=== PATIENT | female | born 1955 | race Caucasian/White ===

== ENCOUNTER 2016-08-01 12:37 | Observation (INO) | payer MEDICARE ==
[2016-08-01] VITALS (10 sets, daily range): BP systolic 133–157; BP diastolic 63–81; PULSE 58–70; RESP 16–18; TEMP 97.6–98.2; O2SAT 93–97
--- NOTE | 2016-08-01 12:43 | PD ---
HPI Chief Complaint: chest pain Time Seen by Provider: 12:41 Travel History International Travel<30 days: No Contact w/Intl Traveler<30days: No Traveled to known affect area: No History of Present Illness HPI 61-year-old female coming in with reports of chest pain since yesterday via EMS. Patient states she was walking yesterday and developed chest pain. Patient states intermittent and ongoing since that time. Patient reports that a year ago her "heart stopped", but she denies having a cardiac catheterization or stress test. Patient has a history of anxiety. Patient also appears somewhat intoxicated with alcohol and board per EMS. Patient was given 324 mg aspirin and 1 sublingual nitroglycerin prior to arrival. Patient currently states her pain is improved. Patient has no known drug allergies. COUNTS INCLUDE 234 BEDS AT THE [facility] Social History Alcohol Use: Yes Tobacco Use: No Substance Use: No Allergies-Medications (Allergen,Severity, Reaction): Coded Allergies: Buspar (Verified Adverse Reaction, Intermediate, INSOMNIA, 08/01/16) Trazodone (Verified Adverse Reaction, Intermediate, SLEEPLESSNESS, 08/01/16 ) Uncoded Allergies: STEROIDS (Adverse Reaction, Intermediate, ANXIETY, 08/01/16) Review of Systems General / Constitutional: No: Fever Eyes: No: Visual changes HENT: No: Headaches Cardiovascular: No: Chest Pain or Discomfort Respiratory: No: Shortness of Breath Gastrointestinal: No: Abdominal Pain Genitourinary: No: Dysuria Musculoskeletal: No: Pain Skin: No Rash Neurologic: No: Weakness Psychiatric: No: Depression Endocrine: No: Polydipsia Hematologic/Lymphatic: No: Easy Bruising Physical Exam Narrative GENERAL: Patient appears anxious but in no acute distress. SKIN: Warm and dry. Normal color. Normal turgor. HEAD: Atraumatic. Normocephalic. EYES: Pupils equal and round. No scleral icterus. No injection or drainage. ENT: No nasal bleeding or discharge. Mucous membranes pink and moist. NECK: Trachea midline. No JVD. CARDIOVASCULAR: Regular rate and rhythm. RESPIRATORY: No accessory muscle use. Clear to auscultation. Breath sounds equal bilaterally. MUSCULOSKELETAL: Extremities without clubbing, cyanosis, or edema. No obvious deformities. NEUROLOGICAL: Awake and alert. No obvious cranial nerve deficits. Motor grossly within normal limits. Five out of 5 muscle strength in the arms and legs. Normal speech. PSYCHIATRIC: Appropriate mood and affect; insight and judgment normal. Data Data Last Documented VS Vital Signs Date Time Temp Pulse Resp B/P Pulse Ox O2 Delivery O2 Flow Rate FiO2 08/01/16 12:45 98.2 61 16 157/81 97 Orders Electrocardiogram (08/01/16 12:39) Ckmb (Isoenzyme) Profile (08/01/16 12:39) Complete Blood Count With Diff (08/01/16 12:39) Comprehensive Metabolic Panel (08/01/16 12:39) D-Dimer (08/01/16 12:39) Magnesium (Mg) (08/01/16 12:39) Prothrombin Time / Inr (Pt) (08/01/16 12:39) Act Partial Throm Time (Ptt) (08/01/16 12:39) Troponin I (08/01/16 12:39) Lipase (08/01/16 12:39) Chest, Single Ap (08/01/16 12:39) Ecg Monitoring (08/01/16 12:39) Bilateral Bp Monitoring (08/01/16 12:39) Iv Access Insert/Monitor (08/01/16 12:39) Oximetry (08/01/16 12:39) Oxygen Administration (08/01/16 12:39) Sodium Chloride 0.9% Flush (Ns Flush) (08/01/16 12:45) Sodium Chlorid 0.9% 500 Ml Inj (Ns 500 M (08/01/16 12:45) Drug Screen, Random Urine (08/01/16 12:39) Alcohol (Ethanol) (08/01/16 12:39) Lorazepam Inj (Ativan Inj) (08/01/16 12:45) MDM Medical Decision Making Medical Screen Exam Complete: Yes Emergency Medical Condition: Yes Differential Diagnosis Chest pain. Cardiac syndrome. Anxiety. Gastritis. Pancreatitis. Narrative Course Patient is medically stable at time of exam. Labs ordered including CBC, CMP, cardiac panel, and lipase. Urinalysis is ordered. Urine drug screen and alcohol level ordered as well. EKG and chest x-ray are ordered. IV access is ordered and patient to have 500 mL normal saline bolus. Patient also to have 1 mg of lorazepam IV. Patient is awaiting medical bed placement. Patient will be discussed and care will be transferred upon medical bed placement. Patient moved to alpha pod, and patient was discussed with Dannielle Scott nurse practitioner who assumes care of the patient. Condition: Stable Porfirio Marrero Aug 01, 2016 12:43
[2016-08-01] MEDS ORDERED: SODIUM CHLORID 0.9% 500 ML INJ 500 ML IV ONE (12:45)
[2016-08-01] MEDS ORDERED: SODIUM CHLORIDE 0.9% FLUSH 5 ML FLUSH IVF PRN ×2 (12:45→15:15)
[2016-08-01] MEDS ORDERED: LORazepam 2 MG/ML VIAL IV ONE (12:45)
--- NOTE | 2016-08-01 13:11 | RADRPT ---
EXAM DATE/TIME: 08/01/2016 12:53 [facility] COMPARISON: No previous studies available for comparison. INDICATIONS : Chest and back pain since yesterday, headaches and anxiety MEDICAL HISTORY : None. SURGICAL HISTORY : None. ENCOUNTER: Initial ACUITY: 2 days PAIN SCORE: 5/10 LOCATION: Bilateral chest FINDINGS: A single view of the chest demonstrates the lungs to be symmetrically aerated without evidence of mas s, infiltrate or effusion. The cardiomediastinal contours are unremarkable. Osseous structures are intact. CONCLUSION: Normal examination. Small eventration of left hemidiaphragm Avery Potts MD on August 01, 2016 at 13:10 Board Certified Radiologist. This report was verified electronically.
[2016-08-01 13:20] LABS: AUTOMATED NEUTROPHIL # 4.7 TH/MM3 (1.8-7.7); BASOPHIL % 0.7 % (0.0-2.0); EOSINOPHIL # 0.1 TH/MM3 (0-0.4); EOSINOPHIL % 1.1 % (0.0-4.0); HEMATOCRIT 45.7 % (35.0-46.0); HEMO FLAGS DIFF FINAL; LYMPHOCYTE # 1.3 TH/MM3 (1.0-4.8); MEAN CELL VOLUME 91.8 FL (80.0-100.0); MEAN CORPUSCULAR HEMOGLOBIN 30.4 PG (27.0-34.0); MEAN CORPUSCULAR HGB CONC 33.2 % (32.0-36.0); NEUT % 72.2 % (16.0-70.0); PLATELET COUNT 327 TH/MM3 (150-450); RED BLOOD COUNT 4.98 MIL/MM3 (4.00-5.30); RED CELL DISTRIBUTION WIDTH 13.4 % (11.6-17.2); WHITE BLOOD COUNT 6.5 TH/MM3 (4.0-11.0)
[2016-08-01 13:37] LABS: ANION GAP 5 MEQ/L (5-15); AST (GOT) 13 U/L (15-37); BICARBONATE 28.6 MEQ/L (21.0-32.0); BLOOD UREA NITROGEN 8 MG/DL (7-18); CHLORIDE 104 MEQ/L (98-107); GLOMERULAR FILTRATION RATE 59 ML/MIN (>89); MAGNESIUM 2.1 MG/DL (1.5-2.5); POTASSIUM 3.9 MEQ/L (3.5-5.1); SODIUM (NA) 138 MEQ/L (136-145)
[2016-08-01] MEDS ORDERED: IRBE75TA5 PO (13:37)
[2016-08-01] MEDS ORDERED: LAMI200T PO (13:37)
[2016-08-01] MEDS ORDERED: REST30CA PO (13:37)
[2016-08-01] MEDS ORDERED: VENL225T PO (13:38)
[2016-08-01] MEDS ORDERED: ASPI81TA19 PO (13:38)
[2016-08-01] MEDS ORDERED: LORA-373 PO (13:38)
[2016-08-01 13:43] LABS: APTT (PATIENT) 26.7 SEC (24.3-30.1); PROTHROMBIN TIME - PATIENT 10.9 SEC (9.8-11.6)
[2016-08-01 13:45] LABS: ALKALINE PHOSPHATASE 113 U/L (45-117); ALT (GPT) 21 U/L (10-53); TOTAL BILIRUBIN ADULT 0.3 MG/DL (0.2-1.0)
[2016-08-01 13:48] LABS: CREATINE KINASE 88 U/L (26-192)
[2016-08-01 14:02] LABS: AMPHETAMINE, URINE NEG (NEG); BARBITURATES, URINE NEG (NEG); COCAINE, URINE NEG (NEG)
--- NOTE | 2016-08-01 14:36 | PD ---
Data Data Last Documented VS Vital Signs Date Time Temp Pulse Resp B/P Pulse Ox O2 Delivery O2 Flow Rate FiO2 08/01/16 13:00 69 18 96 Room Air 08/01/16 13:00 157/81 08/01/16 12:45 98.2 Orders Electrocardiogram (08/01/16 12:39) Ckmb (Isoenzyme) Profile (08/01/16 12:39) Complete Blood Count With Diff (08/01/16 12:39) Comprehensive Metabolic Panel (08/01/16 12:39) D-Dimer (08/01/16 12:39) Magnesium (Mg) (08/01/16 12:39) Prothrombin Time / Inr (Pt) (08/01/16 12:39) Act Partial Throm Time (Ptt) (08/01/16 12:39) Troponin I (08/01/16 12:39) Lipase (08/01/16 12:39) Chest, Single Ap (08/01/16 12:39) Ecg Monitoring (08/01/16 12:39) Bilateral Bp Monitoring (08/01/16 12:39) Iv Access Insert/Monitor (08/01/16 12:39) Oximetry (08/01/16 12:39) Oxygen Administration (08/01/16 12:39) Sodium Chloride 0.9% Flush (Ns Flush) (08/01/16 12:45) Sodium Chlorid 0.9% 500 Ml Inj (Ns 500 M (08/01/16 12:45) Drug Screen, Random Urine (08/01/16 12:39) Alcohol (Ethanol) (08/01/16 12:39) Lorazepam Inj (Ativan Inj) (08/01/16 12:45) Labs Laboratory Tests Test 08/01/16 08/01/16 13:00 13:35 White Blood Count 6.5 TH/MM3 Red Blood Count 4.98 MIL/MM3 Hemoglobin 15.2 GM/DL Hematocrit 45.7 % Mean Corpuscular Volume 91.8 FL Mean Corpuscular Hemoglobin 30.4 PG Mean Corpuscular Hemoglobin 33.2 % Concent Red Cell Distribution Width 13.4 % Platelet Count 327 TH/MM3 Mean Platelet Volume 7.2 FL Neutrophils (%) (Auto) 72.2 % Lymphocytes (%) (Auto) 20.0 % Monocytes (%) (Auto) 6.0 % Eosinophils (%) (Auto) 1.1 % Basophils (%) (Auto) 0.7 % Neutrophils # (Auto) 4.7 TH/MM3 Lymphocytes # (Auto) 1.3 TH/MM3 Monocytes # (Auto) 0.4 TH/MM3 Eosinophils # (Auto) 0.1 TH/MM3 Basophils # (Auto) 0.0 TH/MM3 CBC Comment DIFF FINAL Differential Comment Prothrombin Time 10.9 SEC Prothromb Time International 1.0 RATIO Ratio Activated Partial 26.7 SEC Thromboplast Time D-Dimer Quantitative (PE/DVT) 0.21 MG/L FEU Sodium Level 138 MEQ/L Potassium Level 3.9 MEQ/L Chloride Level 104 MEQ/L Carbon Dioxide Level 28.6 MEQ/L Anion Gap 5 MEQ/L Blood Urea Nitrogen 8 MG/DL Creatinine 0.96 MG/DL Estimat Glomerular Filtration 59 ML/MIN Rate Random Glucose 97 MG/DL Calcium Level 9.5 MG/DL Magnesium Level 2.1 MG/DL Total Bilirubin 0.3 MG/DL Aspartate Amino Transf 13 U/L (AST/SGOT) Alanine Aminotransferase 21 U/L (ALT/SGPT) Alkaline Phosphatase 113 U/L Total Creatine Kinase 88 U/L Troponin I LESS THAN 0.02 NG/ML Total Protein 7.4 GM/DL Albumin 4.2 GM/DL Lipase 240 U/L Ethyl Alcohol Level LESS THAN 3 MG/DL Urine Opiates Screen NEG Urine Barbiturates Screen NEG Urine Amphetamines Screen NEG Urine Benzodiazepines Screen POS Urine Cocaine Screen NEG Urine Cannabinoids Screen NEG MDM Supervised Visit with YURIDIA: Yes Narrative Course Assumed care of patient from RICARDO Marrero. Patient with chest pain times a day. Associated with anxiety. Started yesterday has been off-and-on, worse with exertion yesterday. Not associated with eating. Patient describes episode about a year or so ago where she states her heart was stopped and they had to restart it. She is very bizarre and has bipolar disorder it's unclear how much of this is true. She denies having any cardiac workup at that time. This may just been a syncopal episode. Nonetheless she has exertional chest pain with multiple risk factors and from her report previous cardiac arrest. We will plan on admission to the chest pain Center for further evaluation. Diagnosis Primary Impression: Chest pain Condition: Stable Avery De La Torre MD Aug 01, 2016 14:36
[2016-08-01] MEDS ORDERED: ACETAMINOPHEN 500 MG CPLT PO PRN (15:15)
[2016-08-01] MEDS ORDERED: ACETAMINOPHEN/HYDROcodone 325 MG/7.5 MG TAB PO PRN (15:15)
[2016-08-01] MEDS ORDERED: ONDANSETRON HCL 4 MG/2 ML VIAL IV PRN (15:15)
[2016-08-01] MEDS ORDERED: LORazepam 0.5 MG TAB PO PRN (15:15)
[2016-08-01] MEDS ORDERED: RESP: ALBUTEROL 2.5 MG/IPRATROPIUM 0.5 MG NEB (SCH) INH ONE (15:30)
[2016-08-01] MEDS ORDERED: PILL SPLITTER OTHER PRN (15:30)
[2016-08-01] MEDS: PANTOPRAZOLE SOD 40 MG DELAYED RELEASE TAB PO SCH (15:34)
[2016-08-01] MEDS ORDERED: RESP: ALBUTEROL 2.5 MG/IPRATROPIUM 0.5 MG NEB (PRN) INH (16:00)
[2016-08-01 17:02] LABS: CREATINE KINASE 69 U/L (26-192)
[2016-08-01 19:54] LABS: CREATINE KINASE 68 U/L (26-192)
[2016-08-01] MEDS: LORazepam 0.5 MG TAB PO SCH (20:13)
[2016-08-01] MEDS ORDERED: SODIUM CHLORIDE 0.9% FLUSH 5 ML FLUSH IVF SCH (21:00)
[2016-08-01] MEDS ORDERED: TEMAZEPAM 15 MG CAP PO SCH (21:00)
[2016-08-02 01:24] VITALS: PULSE 55
[2016-08-02 03:23] VITALS: BP 122/58; PULSE 65; RESP 16; TEMP 97.6; O2SAT 96
[2016-08-02 08:00] VITALS: PULSE 58
--- NOTE | 2016-08-02 08:41 | MH ---
cc: EDA REYNA MD DATE OF ADMISSION: 08/01/2016 DATE OF 1955 CHIEF COMPLAINT Chest pain HISTORY OF PRESENT ILLNESS This is a 61 year old female who presents to the emergency department via [facility] from her detention with complaint of chest comfort. She states that she is having central chest discomfort for the past month, intermittently. She describes it as sharp. It occurs a couple of times per day. It lasts usually just a few seconds. She says she has shortness of breath at times, but not all the time. Lasts usually just a few seconds. She says she has shortness of breath at times but not all the time. Denies nausea or diaphoresis. She denies a cardiac workup in the past. Denies any recent illnesses. Denies fevers, chills. PAST MEDICAL HISTORY Bipolar disorder. Hypertension. Denies hyperlipidemia and diabetes. FAMILY HISTORY Is not significant for coronary artery disease. SOCIAL HISTORY: The patient smokes 3/4 pack per day for 45 years. She denies alcohol or illicit drugs. PAST SURGICAL HISTORY: Surgery to her left foot. ALLERGIES BUSPAR TRAZODONE CURRENT MEDICATIONS 1. Irbesartan 2. Lamictal 3. Tamoxifen 4. Lorazepam 5. Temazepam 6. Aspirin. REVIEW OF SYSTEMS GENERAL: Denies fevers or chills. Denies recent illnesses. HEAD, EYES, EARS, NOSE, AND THROAT: Denies headache or sore throat difficulty swallowing. CARDIOVASCULAR SYSTEM: Describes the discomfort as mentioned above. Denies diaphoresis. Denies sensation of a rapidly or irregularly. Denies syncope. RESPIRATORY: At times short of breath. No coughing week. Denies coughing, wheezing months. GASTROINTESTINAL: Denies nausea, vomiting, diarrhea, blood in stool. MUSCULOSKELETAL: Denies joint pain or edema. Denies calf pain or edema. NEUROVASCULAR: Denies headache or dizziness. ENDOCRINE: Denies polyuria or polydipsia. HEMATOLOGIC: No easy bruising. SKIN: Denies rash or itching. PHYSICAL EXAMINATION: VITAL SIGNS: The vital signs in the emergency department initially included a blood pressure 157/81. Heart rate 61, Respirations 16, pulse oximetry 97% on room air. IN GENERAL: The patient was seen in examination room, in no apparent distress. Very pleasant. She speaks in clear and complete sentences. HEAD, EYES, EARS, NOSE, AND THROAT: Head is atraumatic and normocephalic. NECK: Neck is supple without lymphadenopathy and trachea is midline. No jugular venous distention or carotid bruits. CARDIOVASCULAR SYSTEM: Regular rate and rhythm without murmur. RESPIRATORY: Lungs are clear. Respiratory: She has some expiratory wheezing bilateral bases. No rales or rhonchi. No use of muscles. There is reproducible discomfort palpating over the center her chest. This is the same type of discomfort that she has been having. GASTROINTESTINAL: Abdomen is nontender, nondistended and bowel sounds are normal. No guarding or rebound. No obvious pulsatile mass or bruit. No CVA tenderness. Strong femoral pulses bilaterally. MUSCULOSKELETAL: The patient is moving upper and lower extremities freely. No joint tenderness or edema. No calf tenderness, edema, Homans' sign. Strong pulses upper and lower extremity. NEUROVASCULAR: The patient is alert, oriented. Cranial II XII grossly intact. No focal deficit. Speech clear. Skin: No rash or normal. LABORATORY DATA CBC is unremarkable. Coagulation studies are unremarkable including D-dimer is normal 0.21. Complete metabolic panel essentially unremarkable. First of cardiac enzymes normal. Lipase is normal at 240. Single view chest x-ray read by radiologist as normal examination. Small eventration of the left hemidiaphragm. EKG's initial electrocardiogram has sinus rhythm without significant ST-segment depression elevation. ASSESSMENT 1. Atypical chest pain: The patient will continue to have cardiac enzymes and EKG's for ruling out purposes. She has been seen by Dr. Reyna cardiology chest pain Center. Initially discussion was to have Rubens protocol ETT in the morning if she were to rule out. However, the patient has now changed her mind. The patient does not think she will be able to walk on the treadmill and wants to do the chemical version. Subsequently a Lexiscan will be obtained tomorrow if she rules out. If her Lexiscan were to be nonischemic, she will be discharged home with instructions to follow up with her local physician. 2. Bipolar disorder: Continue medications. 3. Hypertension: Continue medication. 4. Tobacco abuse: The patient has been counseled on the importance of smoking cessation. 5. The patient is stable at time. She is agreeable this plan. Dictated by: Prasad Morris PA-C Neelima Joshi/valerie /4:07 PM /8:34
[2016-08-02] MEDS ORDERED: VENLAFAXINE HCL XR 75 MG CAP PO SCH (09:00)
[2016-08-02] MEDS ORDERED: lamoTRIgine 100 MG TAB PO SCH (09:00)
[2016-08-02] MEDS ORDERED: ASPIRIN 325 MG TAB PO SCH (09:00)
[2016-08-02] MEDS ORDERED: LOSARTAN 25 MG TAB PO SCH (09:00)
[2016-08-02] MEDS: PANTOPRAZOLE SOD 40 MG DELAYED RELEASE TAB PO SCH (09:00)
[2016-08-02] MEDS ORDERED: REGADENOSON INJ 0.4 MG/5 ML SYR ONE (09:12)
--- NOTE | 2016-08-02 11:14 | RADRPT ---
EXAM DATE/TIME: 08/02/2016 08:47 [facility] COMPARISON: No previous studies available for comparison. INDICATIONS : Substernal chest pain when walking. Angina. DOSE: 25.4 mCi Tc99m Myoview at stress. 8.5 mCi Tc99m Myoview at rest. 0.4 mg Lexiscan STRESS SYMPTOMS: Dyspnea. EJECTION FRACTION: 63% MEDICAL HISTORY : Hypertension. SURGICAL HISTORY : None. ENCOUNTER: Initial ACUITY: 1 day PAIN SCALE: 6/10 LOCATION: Substernal chest TECHNIQUE: The patient underwent pharmacologic stress with infusion of prescribed dose. Continuous ECG tracing was monitored during stress. Gated SPECT imaging was performed after stress and conventional SPECT i maging was performed at rest. The examination was performed on a SPECT/CT scanner, both attenuation and non-corrected datasets were reviewed. FINDINGS: DISTRIBUTION: The maximum perfused segment at stress is in the lateral wall. PERFUSION STUDY: The pattern of perfusion at stress is within normal limits. GATED STUDY: There is intact wall motion and thickening without hypokinetic or dyskinetic segments. CONCLUSION: 1. No reversibility to suggest ischemia. Normal wall motion with ejection fraction 63%. RISK CATEGORY: Low (<1% Annual Mortality Rate) Wolf Jordan MD on August 02, 2016 at 11:11 Board Certified Radiologist. This report was verified electronically.
--- NOTE | 2016-08-02 11:31 | HHI.DCPOC ---
Discharge Care Plan Diagnosis: (1) Chest pain (2) Hypertension (3) Tobacco abuse (4) Bipolar disorder Goals to Promote Your Health * To prevent worsening of your condition and complications * To maintain your health at the optimal level Directions to Meet Your Goals Take your medications as prescribed Follow your dietary instruction Follow activity as directed Keep your appointments as scheduled Take your immunizations and boosters as scheduled If your symptoms worsen call your PCP, if no PCP go to Urgent Care Center or Emergency Room Smoking is Dangerous to Your Health. Avoid second hand smoke Call the 24-hour hour crisis hotline for domestic abuse at Prasad Morris Aug 02, 2016 11:31
[2016-08-02] MEDS: LORazepam 0.5 MG TAB PO SCH (12:26)
[2016-08-02 16:00] VITALS: BP 126/64; PULSE 69; RESP 20; TEMP 98.3; O2SAT 98
--- NOTE | 2016-08-03 15:51 | EKG ---
Date Performed: 08/01/2016 Time Performed: 19:12:41 PTAGE: 61 years EKG: Sinus rhythm MARKED LEFT AXIS DEVIATION NONSPECIFIC T-WAVE ABNORMALITY ABNORMAL ECG PREVIOUS TRACING : 08/01/2016 16.34 Since previous tracing, no significant change noted DOCTOR: Ollie Noyola Interpretating Date/Time 08/03/2016 15:49:20
--- NOTE | 2016-08-03 15:52 | EKG ---
Date Performed: 08/01/2016 Time Performed: 16:34:11 PTAGE: 61 years EKG: SINUS BRADYCARDIA MARKED LEFT AXIS DEVIATION ABNORMAL ECG PREVIOUS TRACING : 08/01/2016 12.59 Since previous tracing, no significant change noted DOCTOR: Ollie Noyola Interpretating Date/Time 08/03/2016 15:50:29
--- NOTE | 2016-08-03 15:54 | EKG ---
Date Performed: 08/01/2016 Time Performed: 12:59:12 PTAGE: 61 years EKG: Sinus rhythm MARKED LEFT AXIS DEVIATION PATTERN CONSISTENT WITH PULMONARY DISEASE ABNORMAL ECG NO PREVIOUS TRACING DOCTOR: Ollie Noyola Interpretating Date/Time 08/03/2016 15:51:08
--- NOTE | 2016-08-03 16:11 | TR ---
Date Performed: 08/02/2016 Time Performed: 09:18:19 DOCTOR: Ollie Noyola DRUG LIST: CLINICAL HISTORY: CHEST PAIN REASON FOR TEST: CHEST PAIN REASON FOR ENDING: OBSERVATION: CONCLUSION: Lexiscan stress test was performed under standard four minute protocol. Radionuclid e was injected one minute prior to ending the test. No electrocardiographic abormalities were present to suggest ischemia. Nuclear imaging and interpretation are pending. COMMENTS:
== END 2016-08-02 16:57 | disposition home or self-care (01) ==
LOC: NEPA 12:37 → NEDA 14:38 → NEPGCP 16:00 → NEDA 08-02 15:16 → NEPGCP 08-02 16:35
PROVIDERS: ADMIT Internal Medicine Interventional Cardiology; ATTEND Internal Medicine Interventional Cardiology
DX: R07.9 Chest pain, unspecified (principal); F41.9 Anxiety disorder, unspecified; R06.02 Shortness of breath; F31.9 Bipolar disorder, unspecified; I10 Essential (primary) hypertension; F17.210 Nicotine dependence, cigarettes, uncomplicated; Z79.899 Other long term (current) drug therapy; R94.31 Abnormal electrocardiogram [ECG] [EKG]
CPT/HCPCS: 71010; 78452; 80053; 80307; 80320; 82550; 83690; 83735; 84484; 85025; 85379; 85610; 85730; 93005; 93017; 94664; 96374; 96375; 99285; A9502; G0378; J2060; J2785; J7040